=== PATIENT | female | born 1960 | race Caucasian/White ===

== ENCOUNTER 2017-06-04 18:51 | Emergency (ER) | payer OTHER | END 2017-06-04 19:46 | disposition home or self-care (01) | LOC: E/R 18:51 | DX: J20.9 Acute bronchitis, unspecified (principal); H11.32 Conjunctival hemorrhage, left eye | CPT/HCPCS: 99283; Z7502 ==

== ENCOUNTER 2017-06-15 08:21 | Emergency (ER) | payer OTHER ==
[2017-06-15] MEDS: DEXAMETHASONE 10 MG/ML 1 ML INJ PO (08:54)
[2017-06-15] MEDS: IPRATROPIUM (NEB) 0.5 MG/2.5 ML AMP HHN (09:03)
[2017-06-15] MEDS: LEVALBUTEROL (NEB) 1.25 MG/0.5 ML AMP HHN (09:03)
[2017-06-15 09:21] LABS: ADD MAN DIFF? NO
[2017-06-15 09:23] LABS: BASOPHILS % 0.3 % (0.0-2.0); EOSINOPHILS # 0.4 10^3/ul (0.0-0.5); EOSINOPHILS % 3.4 % (0.0-7.0); HEMATOCRIT 37.4 % (37.0-47.0); HEMOGLOBIN 12.4 g/dl (12.0-16.0); LYMPHOCYTES # 1.8 10^3/ul (0.8-2.9); LYMPHOCYTES % 15.2 % (15.0-51.0); MEAN CORPUSCULAR HEMOGLOBIN 28.8 pg (29.0-33.0); MEAN CORPUSCULAR HGB CONC 33.2 g/dl (32.0-37.0); MEAN PLATELET VOLUME 10.9 fl (7.4-10.4); NEUTROPHIL # 8.2 10^3/ul (1.6-7.5); NEUTROPHILS % 71.7 % (39.0-77.0); PLATELET COUNT 256 10^3/UL (140-415); RED CELL DISTRIBUTION WIDTH 13.1 % (11.5-14.5)
[2017-06-15 09:23] LABS: WHITE BLOOD COUNT 11.5 10^3/ul (4.8-10.8)
[2017-06-15 09:41] LABS: ALANINE AMINOTRANSFERASE 50 IU/L (13-69); ALBUMIN 4.1 g/dl (3.3-4.9); ALBUMIN/GLOBULIN RATIO 0.89; ALKALINE PHOSPHATASE 94 IU/L (42-121); ANION GAP 20 (8-16); ASPARTATE AMINO TRANSFERASE 42 IU/L (15-46); BILIRUBIN,INDIRECT 0.7 mg/dl (0-1.1); BILIRUBIN,TOTAL 0.7 mg/dl (0.2-1.3); BLOOD UREA NITROGEN 8 mg/dl (7-20); CALCIUM 9.4 mg/dl (8.4-10.2); CARBON DIOXIDE 28 mmol/L (21-31); CHLORIDE 100 mmol/L (97-110); CREATININE 0.63 mg/dl (0.44-1.00); GLUCOSE 104 mg/dl (70-220); POTASSIUM 3.7 mmol/L (3.5-5.1); SODIUM 144 mmol/L (135-144); TOTAL PROTEIN 8.7 g/dl (6.1-8.1)
[2017-06-15 09:54] LABS: B-TYPE NATRIURETIC PEPTIDE 21 PG/ML (0-125)
[2017-06-15 09:57] LABS: TROPONIN-I < 0.012 ng/ml (0.00-0.12)
[2017-06-15 10:07] LABS: ADD UMIC YES; UR ASCORBIC ACID NEGATIVE (NEGATIVE); UR BILIRUBIN (Dip) NEGATIVE (NEGATIVE); UR BLOOD (Dip) 1+ mg/dL (NEGATIVE); UR CLARITY SLIGHTLY CLOUDY (CLEAR); UR COLOR YELLOW (YELLOW); UR GLUCOSE (Dip) NEGATIVE (NEGATIVE); UR KETONES (Dip) NEGATIVE (NEGATIVE); UR LEUKOCYTE ESTERASE (Dip) 3+ Leu/ul (NEGATIVE); UR MUCUS FEW /HPF (NONE SEEN); UR NITRITE (Dip) NEGATIVE (NEGATIVE); UR RBC 4 /HPF (0-5); UR SQUAMOUS EPITHELIAL CELL FEW /HPF (FEW); UR TOTAL PROTEIN (Dip) 1+ mg/dl (NEGATIVE); UR UROBILINOGEN (Dip) NEGATIVE (NEGATIVE); UR WBC 5 /HPF (0-5)
[2017-06-15] MEDS: LIDOCAINE 2% (MDV) 20 ML INJ INJ (10:17)
[2017-06-15] MEDS: CEFTRIAXONE 1 GM INJ IM (10:17)
== END 2017-06-15 10:47 | disposition home or self-care (01) ==
LOC: FTE 08:21
DX: J18.9 Pneumonia, unspecified organism (principal); R06.02 Shortness of breath
CPT/HCPCS: 36415; 71045; 80053; 81001; 83880; 84484; 85025; 93005; 94664; 96372; 99285-25

== ENCOUNTER 2018-05-18 06:46 | Day surgery (SDC) | payer OTHER ==
[2018-05-18] MEDS ORDERED: FENTAnyl 50 MCG/ML VIAL (08:49)
[2018-05-18] MEDS ORDERED: MIDAZOLAM 1 MG/ML 2 ML INJ ×2 (08:49)
== END 2018-05-18 10:21 | disposition home or self-care (01) ==
LOC: GIL 06:46
DX: Z12.11 Encounter for screening for malignant neoplasm of colon (principal); K64.8 Other hemorrhoids; K64.4 Residual hemorrhoidal skin tags; K57.30 Diverticulosis of large intestine without perforation or abscess without bleeding
CPT/HCPCS: 45378